=== PATIENT | female | born 1990 | race Two or more races ===

== ENCOUNTER 2020-04-09 10:00 | Inpatient (IN) | payer OTHER ==
[2020-04-09] MEDS ORDERED: ELECTROLYTE-148 SOLN 1,000 ML IV ONE (10:30)
[2020-04-09] MEDS ORDERED: CITRIC ACID/SODIUM CITRATE 30 ML UNIT-DOSE CUP PO ONE (10:30)
[2020-04-09] MEDS ORDERED: ELECTROLYTE-148 SOLN 1,000 ML IV SCH ×2 (11:00→14:00)
[2020-04-09 11:25] VITALS: BMI 35.5
[2020-04-09 11:51] LABS: BASO % 1.3 % (0-2.0); EOS % 0.7 % (0-4.5); HEMATOCRIT 34.7 % (32.4-45.2); LYMPH % 23.2 % (8-40); MCH 22.3 pg (25.7-33.7); MCHC 31.7 g/dl (32.0-36.0); MEAN CELL VOLUME 70.3 fl (80-96); MEAN PLT VOLUME 9.9 fl (7.5-11.1); MONO % 7.3 % (3.8-10.2); NEUT % 67.5 % (42.8-82.8); PLATELET COUNT 195 K/MM3 (134-434); RBC 4.94 M/mm3 (3.60-5.2); RDW 17.8 % (11.6-15.6); WHITE BLOOD COUNT 6.2 K/mm3 (4.0-10.0)
[2020-04-09 11:58] LABS: INR 1.03 (0.83-1.09); PROTHROMBIN TIME (PATIENT) 12.4 SEC (9.7-13.0)
[2020-04-09 12:00] LABS: ACTIVATED PTT 27.7 SECONDS (25.2-36.5)
[2020-04-09 12:16] LABS: CALCIUM 8.7 mg/dL (8.5-10.1)
[2020-04-09 12:17] LABS: BLOOD UREA NITROGEN 12.3 mg/dL (7-18)
[2020-04-09 12:20] LABS: CREATININE 0.5 mg/dL (0.55-1.3)
[2020-04-09] MEDS ORDERED: morphine SULFATE/PF 0.5 MG/ML (2cc Syringe - QUVA) ONE (14:02)
[2020-04-09] MEDS ORDERED: OXYTOCIN 20 UNITS in 0.9% NS 20 UNIT/1,000 ML INFUS.BAG IV ONE (14:06)
[2020-04-09 14:27] LABS: HIV INTERPRETATION NEGATIVE (NEGATIVE)
[2020-04-09] MEDS ORDERED: BENZOCAINE 28 GM HEMORRHOIDAL OINTMENT TP PRN (15:30)
[2020-04-09] MEDS ORDERED: IBUPROFEN 600 MG TABLET (FP) PO PRN (15:30)
[2020-04-09] MEDS ORDERED: BENZOCAINE 20% 57 GM BOTTLE TP PRN (15:30)
[2020-04-09] MEDS ORDERED: IBUPROFEN 800 MG/8 ML IJ IVPB PRN (15:30)
[2020-04-09] MEDS ORDERED: SENNOSIDES/DOCUSATE COMBO (SENNA PLUS) TABLET (UD) PO PRN (15:30)
[2020-04-09] MEDS ORDERED: METHYLERGONOVINE MALEATE 0.2 MG/1 ML AMP IM PRN (15:30)
[2020-04-09] MEDS ORDERED: WITCH HAZEL 50% (TUCKS) 40 PAD/JAR PAD TP PRN (15:30)
[2020-04-09] MEDS ORDERED: oxyCODONE HCL 5 MG TABLET PO PRN (15:30)
[2020-04-09] MEDS ORDERED: OXYTOCIN 20 UNITS in 0.9% NS 20 UNIT/1,000 ML INFUS.BAG IV SCH (15:30)
[2020-04-09] MEDS: ceFAZolin 2 GRAM PREMIX BAG IVPB SCH ×2 (15:58→23:03)
[2020-04-10] MEDS: ceFAZolin 2 GRAM PREMIX BAG IVPB SCH (07:41)
[2020-04-10 08:16] LABS: BASO % 0.3 % (0-2.0); EOS % 0.6 % (0-4.5); HEMATOCRIT 30.1 % (32.4-45.2); HEMOGLOBIN 9.5 GM/dL (10.7-15.3); LYMPH % 18.1 % (8-40); MCHC 31.7 g/dl (32.0-36.0); MEAN CELL VOLUME 69.4 fl (80-96); MEAN PLT VOLUME 9.4 fl (7.5-11.1); MONO % 9.5 % (3.8-10.2); NEUT % 71.5 % (42.8-82.8); PLATELET COUNT 179 K/MM3 (134-434); RBC 4.33 M/mm3 (3.60-5.2); WHITE BLOOD COUNT 7.3 K/mm3 (4.0-10.0)
[2020-04-10 09:14] LABS: ANISOCYTOSIS 1+; MACROCYTOSIS 0; PLATELET ESTIMATE NORMAL
[2020-04-10] MEDS: ENOXAPARIN NA (PORCINE) 40 MG/0.4 ML DISP.SYRIN SQ SCH (09:22)
[2020-04-10] MEDS: PRENATAL VITAMINS W/ FOLIC ACID TABLET (FP) PO SCH (09:22)
[2020-04-10] MEDS: IBUPROFEN 600 MG TABLET (FP) PO PRN ×3 (10:33→22:45)
[2020-04-10] MEDS: ACETAMINOPHEN 325 MG TABLET (FP) PO PRN ×3 (10:34→22:45)
[2020-04-10] MEDS: SIMETHICONE 80 MG TAB.CHEW (FP) PO PRN ×2 (14:35→22:44)
[2020-04-10] MEDS ORDERED: BISACODYL 10 MG SUPP.RECT RC PRN (15:30)
[2020-04-11] MEDS: IBUPROFEN 600 MG TABLET (FP) PO PRN ×2 (09:10→20:11)
[2020-04-11] MEDS: PRENATAL VITAMINS W/ FOLIC ACID TABLET (FP) PO SCH (09:10)
[2020-04-11] MEDS: ENOXAPARIN NA (PORCINE) 40 MG/0.4 ML DISP.SYRIN SQ SCH (09:11)
[2020-04-11] MEDS: ACETAMINOPHEN 325 MG TABLET (FP) PO PRN ×2 (09:11→20:12)
[2020-04-12 08:33] LABS: BASO % 0.4 % (0-2.0); EOS % 1.3 % (0-4.5); HEMATOCRIT 28.6 % (32.4-45.2); HEMOGLOBIN 8.9 GM/dL (10.7-15.3); LYMPH % 24.1 % (8-40); MCH 21.8 pg (25.7-33.7); MCHC 31.3 g/dl (32.0-36.0); MEAN CELL VOLUME 69.8 fl (80-96); MEAN PLT VOLUME 9.3 fl (7.5-11.1); MONO % 8.2 % (3.8-10.2); PLATELET COUNT 218 K/MM3 (134-434); RBC 4.09 M/mm3 (3.60-5.2); RDW 18.2 % (11.6-15.6); WHITE BLOOD COUNT 6.7 K/mm3 (4.0-10.0)
[2020-04-12 10:01] VITALS: BP 108/65; PULSE 80; TEMP 98.1
[2020-04-12] MEDS: ACETAMINOPHEN 325 MG TABLET (FP) PO PRN (11:26)
[2020-04-12] MEDS: ENOXAPARIN NA (PORCINE) 40 MG/0.4 ML DISP.SYRIN SQ SCH (11:26)
[2020-04-12] MEDS: IBUPROFEN 600 MG TABLET (FP) PO PRN (11:27)
[2020-04-12] MEDS: PRENATAL VITAMINS W/ FOLIC ACID TABLET (FP) PO SCH (11:27)
== END 2020-04-12 12:50 | disposition home or self-care (01) | DRG 788 ==
LOC: JLDR 10:00 → J3W 17:00
PROVIDERS: ADMIT Obstetrics & Gynecology; ATTEND Obstetrics & Gynecology
PROC: 10D00Z1 Extraction of Products of Conception, Low, Open Approach (ICD-10-PCS; principal; 2020-04-09)
DX: O24.420 Gestational diabetes mellitus in childbirth, diet controlled (principal); O99.214 Obesity complicating childbirth; E66.9 Obesity, unspecified; O90.81 Anemia of the puerperium; D64.9 Anemia, unspecified; O34.219 Maternal care for unspecified type scar from previous cesarean delivery; Z3A.39 39 weeks gestation of pregnancy; Z37.0 Single live birth
CPT/HCPCS: 36415; 80048; 85025; 85610; 85730; 86780; 86850; 86900; 86901; 87389; 88307-TC

== ENCOUNTER 2024-03-18 00:38 | Emergency (ER) | payer OTHER, BC ==
[2024-03-18 00:47] VITALS: BP 131/72; PULSE 90; RESP 18; TEMP 98; BMI 34.4
[2024-03-18 02:44] LABS: BASO % 0.4 % (0-2.0); EOS % 1.2 % (0-4.5); HEMATOCRIT 37.6 % (32.4-45.2); HEMOGLOBIN 12.3 GM/dL (10.7-15.3); MCH 25.4 pg (25.7-33.7); MCHC 32.8 g/dl (32.0-36.0); MEAN CELL VOLUME 77.4 fl (80-96); MEAN PLT VOLUME 8.4 fl (7.5-11.1); MONO % 6.5 % (3.8-10.2); NEUT % 67.9 % (42.8-82.8); PLATELET COUNT 259 10^3/uL (134-434); RBC 4.86 M/mm3 (3.60-5.2); WHITE BLOOD COUNT 10.8 K/mm3 (4.0-10.0)
[2024-03-18 02:54] LABS: INR 1.09 (0.83-1.09); PROTHROMBIN TIME (PATIENT) 12.3 SEC (9.7-13.0)
[2024-03-18 02:57] LABS: ACTIVATED PTT 35.5 SECONDS (25.2-36.5)
[2024-03-18 03:09] LABS: ALBUMIN 3.7 g/dl (3.4-5.0); BLOOD UREA NITROGEN 11.4 mg/dL (7-18); CALCIUM 8.7 mg/dL (8.5-10.1)
[2024-03-18 03:13] LABS: CREATININE 0.6 mg/dL (0.55-1.3)
[2024-03-18 03:14] LABS: BILIRUBIN,TOTAL 0.2 mg/dL (0.2-1); TOT PROT 7.7 g/dl (6.4-8.2)
== END 2024-03-18 05:10 | disposition home or self-care (01) ==
LOC: JER 00:38
DX: O20.9 Hemorrhage in early pregnancy, unspecified (principal); O26.899 Other specified pregnancy related conditions, unspecified trimester; R10.31 Right lower quadrant pain; Z3A.00 Weeks of gestation of pregnancy not specified
CPT/HCPCS: 36415; 76817-TC; 80053; 84702; 85025; 85610; 85730; 99284-25

== ENCOUNTER 2024-03-19 14:10 | Emergency (ER) | payer OTHER, BC ==
[2024-03-19 14:25] VITALS: BP 127/73; PULSE 100; TEMP 98.6; BMI 33.4
== END 2024-03-19 17:26 | disposition home or self-care (01) ==
LOC: JERFT 14:10 → JER 14:10 → JERFT 17:26
DX: O09.521 Supervision of elderly multigravida, first trimester (principal); O20.0 Threatened abortion; Z3A.00 Weeks of gestation of pregnancy not specified
CPT/HCPCS: 36415; 84702; 99283-25

== ENCOUNTER 2024-03-21 18:05 | Emergency (ER) | payer OTHER, BC ==
[2024-03-21 18:40] VITALS: TEMP 98.5; BMI 34.4
[2024-03-21 23:06] VITALS: BP 117/69; PULSE 87; RESP 15
== END 2024-03-21 23:43 | disposition home or self-care (01) ==
LOC: JER 18:05
DX: O09.511 Supervision of elderly primigravida, first trimester (principal); O20.9 Hemorrhage in early pregnancy, unspecified; Z3A.01 Less than 8 weeks gestation of pregnancy
CPT/HCPCS: 36415; 76817-TC; 84702; 99284-25

== ENCOUNTER 2024-03-22 17:07 | Emergency (ER) | payer OTHER, BC ==
[2024-03-22 17:13] VITALS: BP 104/56; PULSE 84; RESP 20; TEMP 98.4; BMI 37.2
[2024-03-22 18:03] LABS: BASO % 0.6 % (0-2.0); EOS % 1.4 % (0-4.5); HEMOGLOBIN 12.5 GM/dL (10.7-15.3); LYMPH % 23.4 % (8-40); MCH 25.2 pg (25.7-33.7); MCHC 32.9 g/dl (32.0-36.0); MEAN CELL VOLUME 76.7 fl (80-96); MEAN PLT VOLUME 8.4 fl (7.5-11.1); MONO % 7.5 % (3.8-10.2); NEUT % 67.1 % (42.8-82.8); PLATELET COUNT 290 10^3/uL (134-434); RBC 4.96 M/mm3 (3.60-5.2); RDW 14.7 % (11.6-15.6); WHITE BLOOD COUNT 9.4 K/mm3 (4.0-10.0)
[2024-03-22 18:13] LABS: INR 1.08 (0.83-1.09); PROTHROMBIN TIME (PATIENT) 12.4 SEC (9.7-13.0)
[2024-03-22 18:16] LABS: ACTIVATED PTT 36.3 SECONDS (25.2-36.5)
[2024-03-22 20:20] LABS: ALBUMIN 3.7 g/dl (3.4-5.0); CALCIUM 9.3 mg/dL (8.5-10.1)
[2024-03-22 20:23] LABS: CREATININE 0.7 mg/dL (0.55-1.3)
[2024-03-22 20:25] LABS: BILIRUBIN,TOTAL 0.3 mg/dL (0.2-1); TOT PROT 7.9 g/dl (6.4-8.2)
[2024-03-22 20:30] LABS: BLOOD UREA NITROGEN 13.4 mg/dL (7-18)
[2024-03-22] MEDS ORDERED: METHOTREXATE SODIUM/PF 25 MG/ML VIAL IM ONE (20:54)
[2024-03-22] MEDS ORDERED: ACETAMINOPHEN 500 MG TABLET (FP) ONE (20:56)
[2024-03-22] MEDS: IBUPROFEN 600 MG TABLET (FP) PO ONE (20:56)
[2024-03-22] MEDS ORDERED: IBUPROFEN 600 MG TABLET (FP) PO ONE (20:56)
[2024-03-22] MEDS: ACETAMINOPHEN 500 MG TABLET (FP) PO ONE (20:56)
[2024-03-22] MEDS: METHOTREXATE SODIUM/PF 25 MG/ML VIAL IM ONE (21:48)
== END 2024-03-22 22:05 | disposition home or self-care (01) ==
LOC: JER 17:07
PROC: 3E023GC Introduction of Other Therapeutic Substance into Muscle, Percutaneous Approach (ICD-10-PCS; principal; 2024-03-22)
DX: O00.90 Unspecified ectopic pregnancy without intrauterine pregnancy (principal)
CPT/HCPCS: 36415; 80053; 84702; 85025; 85610; 85730; 86850; 86900; 86901; 99284-25; J9260

== ENCOUNTER 2024-09-19 16:12 | Emergency (ER) | payer OTHER, BC ==
[2024-09-19 16:43] VITALS: BP 112/59; PULSE 105; RESP 18; TEMP 98; BMI 30.4
[2024-09-19 18:42] LABS: PH,URINE 5.5 (5.0-8.0); URINE APPEARANCE CLOUDY; URINE BILIRUBIN NEGATIVE (NEGATIVE); URINE COLOR YELLOW; URINE GLUCOSE (UA) NEGATIVE (NEGATIVE); URINE KETONE TRACE (NEGATIVE); URINE LEUK ESTERASE NEGATIVE (NEGATIVE); URINE NITRITE NEGATIVE (NEGATIVE); URINE PROTEIN NEGATIVE (NEGATIVE)
[2024-09-19] MEDS ORDERED: ACETAMINOPHEN INJECTION 100 ML ONE (18:53)
[2024-09-19] MEDS: ACETAMINOPHEN 1000 MG/100 ML BAG IVPB ONE (18:58)
[2024-09-19 19:07] LABS: CHLORIDE 105 mmol/L (98-107); SODIUM 130 mmol/L (136-145)
[2024-09-19 19:08] LABS: POTASSIUM 8.1 mmol/L (3.5-5.1)
[2024-09-19 19:09] LABS: CALCIUM 8.8 mg/dL (8.5-10.1)
[2024-09-19 19:10] LABS: ALBUMIN 3.5 g/dl (3.4-5.0); ANION GAP 1 mmol/L (4-13); BLOOD UREA NITROGEN 10.8 mg/dL (7-18); CO2 23 mmol/L (21-32); GLUCOSE,RANDOM 77 mg/dL (74-106); MAGNESIUM 1.9 mg/dL (1.8-2.4)
[2024-09-19 19:14] LABS: BILIRUBIN,TOTAL 0.4 mg/dL (0.2-1); CREATININE 0.6 mg/dL (0.55-1.3); SGOT/AST 71 U/L (15-37); SGPT/ALT 22 U/L (13-61)
[2024-09-19 19:16] LABS: ALK PHOS 83 U/L (45-117)
[2024-09-19 19:45] LABS: HCG,QUALITATIVE URINE Positive
[2024-09-19 19:56] LABS: HCV DIAGNOSTIC IN-HOUSE W/RFLX NON-REACTIVE (NONREACTIVE); HIV INTERPRETATION NEGATIVE (NEGATIVE)
[2024-09-19] MEDS: SODIUM CHLORIDE 0.9% 500 ML INFUS.BAG IV ONE (20:00)
[2024-09-19 20:45] LABS: ABSOLUTE IMMATURE GRANULOCYTES 0.05 x10^3/uL (0.0-0.031); BASOPHILS # 0.03 x10^3/uL (0.01-0.08); HEMATOCRIT 37.4 % (34.1-44.9); HEMOGLOBIN 11.3 g/dL (11.2-15.7); MCHC 30.2 g/dl (32.2-35.5); MEAN CELL VOLUME 78.9 fl (79.4-94.8); MEAN PLT VOLUME 10.6 fl (9.4-12.3); MONOCYTE # 0.63 x10^3/uL (0.24-0.86); MONOCYTE % 6.2 % (4.7-12.5); PLATELET COUNT 289 x10^3/uL (182-369); RDW 15.7 % (12.1-16.8)
[2024-09-19 21:06] LABS: POTASSIUM 3.5 mmol/L (3.5-5.1)
[2024-09-19 21:10] LABS: ALBUMIN 3.6 g/dl (3.4-5.0); BLOOD UREA NITROGEN 10.2 mg/dL (7-18)
[2024-09-19 21:13] LABS: CREATININE 0.5 mg/dL (0.55-1.3)
[2024-09-19 21:14] LABS: BILIRUBIN,TOTAL 0.3 mg/dL (0.2-1)
[2024-09-19 21:16] LABS: TOT PROT 7.6 g/dl (6.4-8.2)
== END 2024-09-19 21:22 | disposition home or self-care (01) ==
LOC: JER 16:12
PROC: 3E033NZ Introduction of Analgesics, Hypnotics, Sedatives into Peripheral Vein, Percutaneous Approach (ICD-10-PCS; principal; 2024-09-19)
DX: O09.521 Supervision of elderly multigravida, first trimester (principal); O26.891 Other specified pregnancy related conditions, first trimester; R10.2 Pelvic and perineal pain; Z3A.01 Less than 8 weeks gestation of pregnancy
CPT/HCPCS: 36415; 76817-TC; 80053; 81003; 83690; 83735; 84702; 84703; 85025; 86803; 86850; 86900; 86901; 87086; 87389; 99285-25; J0131

== ENCOUNTER 2024-11-28 16:07 | Emergency (ER) | payer BC, OTHER ==
[2024-11-28 16:51] VITALS: TEMP 98.1; BMI 31.9
[2024-11-28] MEDS ORDERED: METHOCARBAMOL 500 MG TABLET ONE (19:20)
[2024-11-28] MEDS ORDERED: IBUPROFEN 600 MG TABLET (FP) PO ONE (19:20)
[2024-11-28] MEDS ORDERED: predniSONE 20 MG TABLET (UD) ONE (19:20)
[2024-11-28] MEDS ORDERED: ACETAMINOPHEN 500 MG TABLET (FP) ONE (19:23)
[2024-11-28] MEDS: IBUPROFEN 600 MG TABLET (FP) PO ONE (19:28)
[2024-11-28] MEDS: METHOCARBAMOL 750 MG TAB PO ONE (19:29)
[2024-11-28] MEDS: ACETAMINOPHEN 500 MG TABLET (FP) PO ONE (19:29)
[2024-11-28] MEDS: predniSONE 20 MG TABLET (UD) PO ONE (19:29)
[2024-11-28 19:46] LABS: URINE APPEARANCE CLOUDY; URINE BILIRUBIN NEGATIVE (NEGATIVE); URINE COLOR YELLOW; URINE GLUCOSE (UA) NEGATIVE (NEGATIVE); URINE KETONE TRACE (NEGATIVE); URINE LEUK ESTERASE NEGATIVE (NEGATIVE); URINE NITRITE NEGATIVE (NEGATIVE); URINE PROTEIN NEGATIVE (NEGATIVE); URINE UROBILINOGEN 1.0 mg/dL (0.2-1.0)
[2024-11-28 19:48] LABS: HCG,QUALITATIVE URINE Negative
[2024-11-28 20:30] VITALS: BP 110/71; PULSE 84; RESP 17
== END 2024-11-28 20:30 | disposition home or self-care (01) ==
LOC: JER 16:07
DX: M54.41 Lumbago with sciatica, right side (principal)
CPT/HCPCS: 73502-TC-RT-FY; 81003; 84703; 87086; 99284-25

== ENCOUNTER 2024-12-16 11:57 | Observation (INO) | payer BC, OTHER ==
[2024-12-16 12:20] VITALS: BMI 31.9
[2024-12-16] MEDS: ACETAMINOPHEN 1000 MG/100 ML BAG IVPB ONE (13:15)
[2024-12-16] MEDS ORDERED: ACETAMINOPHEN INJECTION 100 ML ONE (13:17)
[2024-12-16 13:31] LABS: ABSOLUTE IMMATURE GRANULOCYTES 0.02 x10^3/uL (0.0-0.031); BASOPHILS # 0.03 x10^3/uL (0.01-0.08); EOSINOPHIL % 1.6 % (0.7-5.8); EOSINOPHILS # 0.10 x10^3/uL (0.04-0.36); MCHC 30.5 g/dl (32.2-35.5); MEAN CELL VOLUME 77.4 fl (79.4-94.8); MEAN PLT VOLUME 11.0 fl (9.4-12.3); MONOCYTE # 0.47 x10^3/uL (0.24-0.86); MONOCYTE % 7.3 % (4.7-12.5); RDW 15.3 % (12.1-16.8)
[2024-12-16 13:46] LABS: INR 1.22 (0.83-1.09); PROTHROMBIN TIME (PATIENT) 13.4 SEC (9.7-13.0)
[2024-12-16 13:49] LABS: ACTIVATED PTT 34.4 SECONDS (25.2-36.5)
[2024-12-16 14:02] LABS: CO2 25 mmol/L (21-32); GLUCOSE,RANDOM 78 mg/dL (74-106)
[2024-12-16 14:02] LABS: EPI CELLS 14 /uL (0-25.1); HYALINE CASTS 1 /uL (0-3.1); URINE APPEARANCE CLEAR; URINE BACTERIA 150 /uL (0-1359); URINE BILIRUBIN NEGATIVE (NEGATIVE); URINE COLOR YELLOW; URINE GLUCOSE (UA) NEGATIVE (NEGATIVE); URINE KETONE NEGATIVE (NEGATIVE); URINE LEUK ESTERASE NEGATIVE (NEGATIVE); URINE NITRITE NEGATIVE (NEGATIVE); URINE PROTEIN NEGATIVE (NEGATIVE); URINE RBC 16 /uL (0-23.9); URINE UROBILINOGEN 0.2 mg/dL (0.2-1.0); URINE WBC 13 /uL (0-25.8)
[2024-12-16 14:03] LABS: HCG,QUALITATIVE URINE Negative
[2024-12-16 14:04] LABS: SGOT/AST 71 U/L (15-37)
[2024-12-16 14:05] LABS: CREATININE 0.6 mg/dL (0.55-1.3)
[2024-12-16 14:06] LABS: TOT PROT 8.1 g/dl (6.4-8.2)
[2024-12-16 14:07] LABS: ALK PHOS 88 U/L (45-117)
[2024-12-16 14:08] LABS: SGPT/ALT 25 U/L (13-61)
[2024-12-16 15:21] LABS: CO2 25.0 mmol/L (21-32); GLUCOSE,RANDOM 77.0 mg/dL (74-106)
[2024-12-16 15:24] LABS: CREATININE 0.6 mg/dL (0.55-1.3); SGOT/AST 13.0 U/L (15-37); SGPT/ALT 22.0 U/L (13-61)
[2024-12-16 15:26] LABS: TOT PROT 7.5 g/dl (6.4-8.2)
[2024-12-16 15:27] LABS: ALK PHOS 87.0 U/L (45-117)
[2024-12-16] MEDS: KETOROLAC TROMETHAMINE 15 MG/ML VIAL IVPUSH ONE (15:39)
[2024-12-16] MEDS ORDERED: KETOROLAC TROMETHAMINE 15 MG/ML VIAL ONE ×2 (15:41→21:51)
[2024-12-16] MEDS ORDERED: ACETAMINOPHEN 325 MG TABLET (FP) PO PRN (20:18)
[2024-12-16] MEDS: SODIUM CHLORIDE 1,000 ML IV SCH (21:41)
[2024-12-16] MEDS: KETOROLAC TROMETHAMINE 15 MG/ML VIAL IVPUSH PRN (21:49)
[2024-12-16] MEDS ORDERED: DEXTROSE 50%-WATER 25 GM/50 ML DISP.SYRIN IVPUSH PRN (23:10)
[2024-12-17] MEDS: PIPERACILLIN/TAZOB 3.375 GM 3.375 GM in DEXTROSE 5%-WATER - 50 ML IVPB SCH (05:38)
[2024-12-17] MEDS: morphine CARPU-JECT 2 MG/1 ML DISP.SYRIN IVPUSH PRN (08:43)
[2024-12-17 09:26] LABS: ABSOLUTE IMMATURE GRANULOCYTES 0.01 x10^3/uL (0.0-0.031); BASOPHILS # 0.03 x10^3/uL (0.01-0.08); EOSINOPHIL % 1.0 % (0.7-5.8); EOSINOPHILS # 0.05 x10^3/uL (0.04-0.36); MCHC 30.6 g/dl (32.2-35.5); MEAN CELL VOLUME 77.2 fl (79.4-94.8); MEAN PLT VOLUME 10.1 fl (9.4-12.3); MONOCYTE # 0.33 x10^3/uL (0.24-0.86); MONOCYTE % 6.4 % (4.7-12.5); RDW 14.4 % (12.1-16.8)
[2024-12-17 09:59] LABS: CO2 26.0 mmol/L (21-32); GLUCOSE,RANDOM 90.0 mg/dL (74-106)
[2024-12-17 10:01] LABS: SGOT/AST 11.0 U/L (15-37); SGPT/ALT 20.0 U/L (13-61)
[2024-12-17 10:02] LABS: CREATININE 0.6 mg/dL (0.55-1.3)
[2024-12-17 10:03] LABS: TOT PROT 6.9 g/dl (6.4-8.2)
[2024-12-17 10:04] LABS: ALK PHOS 76.0 U/L (45-117)
[2024-12-17] MEDS: ONDANSETRON 4 MG/2 ML VIAL IVPUSH PRN (22:00)
[2024-12-18 09:16] LABS: ABSOLUTE IMMATURE GRANULOCYTES 0.02 x10^3/uL (0.0-0.031); BASOPHILS # 0.02 x10^3/uL (0.01-0.08); EOSINOPHIL % 1.0 % (0.7-5.8); EOSINOPHILS # 0.06 x10^3/uL (0.04-0.36); MCHC 31.0 g/dl (32.2-35.5); MEAN CELL VOLUME 76.5 fl (79.4-94.8); MEAN PLT VOLUME 11.2 fl (9.4-12.3); MONOCYTE # 0.46 x10^3/uL (0.24-0.86); MONOCYTE % 7.4 % (4.7-12.5); RDW 14.5 % (12.1-16.8)
[2024-12-18 09:59] LABS: CO2 26.0 mmol/L (21-32); GLUCOSE,RANDOM 92.0 mg/dL (74-106)
[2024-12-18 10:02] LABS: CREATININE 0.6 mg/dL (0.55-1.3); SGOT/AST 9.0 U/L (15-37); SGPT/ALT 18.0 U/L (13-61)
[2024-12-18 10:03] LABS: TOT PROT 6.9 g/dl (6.4-8.2)
[2024-12-18 10:04] LABS: ALK PHOS 82.0 U/L (45-117)
[2024-12-18] MEDS: ACETAMINOPHEN 325 MG TABLET (FP) PO PRN (12:17)
[2024-12-19] MEDS ORDERED: PIPERACILLIN/TAZOB 3.375 GM 3.375 GM in DEXTROSE 5%-WATER - 50 ML IVPB SCH (02:00)
[2024-12-19 07:55] LABS: ABSOLUTE IMMATURE GRANULOCYTES 0.01 x10^3/uL (0.0-0.031); BASOPHILS # 0.02 x10^3/uL (0.01-0.08); EOSINOPHIL % 1.8 % (0.7-5.8); EOSINOPHILS # 0.11 x10^3/uL (0.04-0.36); MCHC 31.0 g/dl (32.2-35.5); MEAN CELL VOLUME 76.6 fl (79.4-94.8); MEAN PLT VOLUME 11.8 fl (9.4-12.3); MONOCYTE # 0.47 x10^3/uL (0.24-0.86); MONOCYTE % 7.9 % (4.7-12.5); RDW 14.6 % (12.1-16.8)
[2024-12-19] MEDS ORDERED: BUPIVACAINE HCL/PF 0.25% (2.5MG/ML) 10 ML VIAL ONE (09:36)
[2024-12-19] MEDS ORDERED: MIDAZOLAM HCL 2 MG/2 ML SINGLE DOSE VIAL ONE (09:46)
[2024-12-19] MEDS ORDERED: PROPOFOL 40 ML ONE (09:46)
[2024-12-19 10:03] LABS: CO2 24.0 mmol/L (21-32)
[2024-12-19 10:05] LABS: GLUCOSE,RANDOM 88.0 mg/dL (74-106)
[2024-12-19 10:08] LABS: SGOT/AST 14.0 U/L (15-37); SGPT/ALT 22.0 U/L (13-61)
[2024-12-19 10:09] LABS: CREATININE 0.7 mg/dL (0.55-1.3)
[2024-12-19 10:10] LABS: TOT PROT 7.7 g/dl (6.4-8.2)
[2024-12-19] MEDS: BUPIVACAINE HCL/PF 2.5 MG/ML - 30 ML VIAL IJ ONE ×2 (10:10)
[2024-12-19] MEDS ORDERED: PROPOFOL 20 ML ONE (10:23)
[2024-12-19] MEDS ORDERED: DEXTROSE 50%-WATER 25 GM/50 ML DISP.SYRIN IVPUSH PRN (11:08)
[2024-12-19] MEDS ORDERED: KETOROLAC TROMETHAMINE 15 MG/ML VIAL IVPUSH PRN (11:08)
[2024-12-19 11:13] LABS: ALK PHOS 85.0 U/L (45-117)
[2024-12-19] MEDS: ONDANSETRON 4 MG/2 ML VIAL IVPUSH PRN (15:11)
[2024-12-19 15:14] VITALS: RESP 18
[2024-12-19 17:30] VITALS: BP 119/74; PULSE 99; TEMP 98.1
[2024-12-19] MEDS: ACETAMINOPHEN 325 MG TABLET (FP) PO SCH (17:31)
[2024-12-19] MEDS ORDERED: ONDANSETRON 4 MG/2 ML VIAL IVPUSH ONE (17:33)
[2024-12-19] MEDS: ONDANSETRON *ODT* 4 MG TABLET SL ONE (17:43)
== END 2024-12-19 19:03 | disposition home or self-care (01) ==
LOC: JER 11:57 → JERBED 18:57 → J7W 22:49
PROVIDERS: ADMIT Hospitalist; ATTEND Student in an Organized Health Care Education/Training Program
DX: N80.399 Endometriosis of the pelvic peritoneum, other specified sites, unspecified depth (principal)
CPT/HCPCS: 36415; 71045-TC-FY; 72197-TC; 74177-TC; 80053; 81003; 82962; 83690; 83735; 84100; 84703; 85025; 85384; 85610; 85730; 86480; 86850; 86900; 86901; 87086; 88307-TC; 88342-TC; 94760; 99285-25; G0378; Q0162; Q9967